=== PATIENT | female | born 1995 | race American Indian/Alaskan Native ===

== ENCOUNTER 2018-02-26 21:47 | Emergency (ER) | payer SELFPAY ==
[2018-02-26 22:37] VITALS: BP 137/78
[2018-02-26] MEDS ORDERED: TYLENOL ONE (22:43)
[2018-02-26 23:07] LABS: Basophils % (Auto) 0.5 % (0.0-1.8); Hematocrit 40.2 % (30.3-42.9); Hemoglobin 13.7 gm/dl (10.1-14.3); Lymphocytes # (Auto) 2.2 K/mm3 (1.2-5.4); Lymphocytes % (Auto) 23.4 % (13.4-35.0); Mean Corpuscular HGB Conc 34 % (30-34); Mean Corpuscular Hemoglobin 29 pg (28-32); Mean Corpuscular Volume 84 fl (79-97); Monocytes # (Auto) 0.9 K/mm3 (0.0-0.8); Monocytes % (Auto) 9.6 % (0.0-7.3); Platelet Count 305 K/mm3 (140-440); Red Cell Distribution Width 14.3 % (13.2-15.2)
[2018-02-26 23:27] LABS: Alanine Aminotransferase 66 units/L (7-56); Albumin 4.5 g/dL (3.9-5); BUN/Creatinine Ratio 14; Blood Urea Nitrogen 7 mg/dL (7-17); Calcium 9.1 mg/dL (8.4-10.2); Hemolysis Index 3; Lipase 26 units/L (13-60)
[2018-02-26 23:38] LABS: INR 0.93 (0.87-1.13)
[2018-02-26 23:39] LABS: Partial Thromboplastin Time 33.1 Sec. (24.2-36.6)
[2018-02-27 01:17] LABS: Bilirubin,Urine NEG (Negative); Blood,Urine MOD (Negative); Color,Urine Yellow (Yellow); Mucus,Urine 2+ /HPF; Protein,Urine <15 mg/dL mg/dL (Negative)
== END 2018-02-26 23:50 | disposition left against medical advice (07) ==
LOC: ED 21:47
DX: R10.9 Unspecified abdominal pain (principal); R11.2 Nausea with vomiting, unspecified; Z53.21 Procedure and treatment not carried out due to patient leaving prior to being seen by health care provider
CPT/HCPCS: 36415; 80053; 81001; 83690; 84703; 85025; 85610; 85730; 86850; 86900; 86901; 93005; 93010

== ENCOUNTER 2018-08-04 22:54 | Emergency (ER) | payer MEDICAID ==
[2018-08-04] MEDS ORDERED: NACL 0.9% 1000 ML 1,000 ML IV ONE (23:27)
[2018-08-04] MEDS ORDERED: MORPHINE IV ONE (23:27)
[2018-08-04] MEDS ORDERED: ZOFRAN IV ONE (23:27)
--- NOTE | 2018-08-04 23:30 | Emergency Department Report ---
ED Abdominal Pain HPI - General Chief Complaint: Abdominal Pain Stated Complaint: ABD PAIN Time Seen by Provider: 08/04/18 23:03 Source: patient, EMS Mode of arrival: Stretcher Limitations: No Limitations - History of Present Illness Initial Comments: Kristine is a 23-year-old female with history of Crohn's disease, bipolar disorder , kidney stone and cold sores who presents with right lower quadrant abdominal pain which began gradually around 4:30 PM. The patient has subjective fever. Has a burning type pain. Gradual onset. no radiation of the pain. She ate fried chicken and fried fish this afternoon. She normally lives in [facility]. She is here in [facility] visiting her sister. [facility] is followed [facility] a free clinic. She takes sulfasalazine. She normally has a Crohn's flare every few months or so. She does not have access to a supervisor mending. She is attempting to establish care. MD Complaint: abdominal pain -: Gradual Location: RLQ Radiation: R flank Severity: severe Quality: burning Worsens With: movement Associated Symptoms: nausea, vomiting - Related Data Previous Rx's Medication Instructions Recorded Last Taken Type oxyCODONE /ACETAMINOPHEN [Percocet 1 tab PO Q6HR PRN #10 tablet 08/05/18 Unknown Rx 5/325] predniSONE [Deltasone] 3 tab PO QDAY 3 Days #9 tab 08/05/18 Unknown Rx Allergies Allergy/AdvReac Type Severity Reaction Status Date / Time ciprofloxacin [From Cipro] Allergy Hives Verified 02/26/18 22:32 Penicillins Allergy Hives Verified 02/26/18 22:32 ED Review of Systems ROS: Stated complaint: ABD PAIN Other details as noted in HPI Comment: All other systems reviewed and negative Constitutional: fever, malaise Respiratory: denies: cough Cardiovascular: denies: chest pain ED Past Medical Hx - Past Medical History Previous Medical History?: Yes Hx Kidney Stones: Yes Hx Psychiatric Treatment: Yes (bipolar and depression) Additional medical history: Chrons Dz, - Surgical History Past Surgical History?: Yes Hx Cholecystectomy: Yes Additional Surgical History: tonsilectomy, ureteral stent - Social History Smoking Status: Never Smoker Substance Use Type: None - Medications Home Medications: Home Medications Medication Instructions Recorded Confirmed Last Taken Type oxyCODONE /ACETAMINOPHEN [Percocet 1 tab PO Q6HR PRN #10 tablet 08/05/18 Unknown Rx 5/325] predniSONE [Deltasone] 3 tab PO QDAY 3 Days #9 tab 08/05/18 Unknown Rx ED Physical Exam - General Limitations: No Limitations General appearance: alert, in no apparent distress - Head Head exam: Present: atraumatic, normocephalic - Eye Eye exam: Present: normal appearance - ENT ENT exam: Present: mucous membranes moist - Neck Neck exam: Present: normal inspection. Absent: tenderness, meningismus - Respiratory Respiratory exam: Present: normal lung sounds bilaterally. Absent: respiratory distress, wheezes, rales, rhonchi - Cardiovascular Cardiovascular Exam: Present: regular rate, normal rhythm, normal heart sounds. Absent: systolic murmur, diastolic murmur, rubs, gallop - GI/Abdominal GI/Abdominal exam: Present: soft, normal bowel sounds. Absent: distended, tenderness, guarding, rebound - Extremities Exam Extremities exam: Present: normal inspection - Back Exam Back exam: Present: normal inspection - Neurological Exam Neurological exam: Present: alert, oriented X3 - Psychiatric Psychiatric exam: Present: normal affect, normal mood - Skin Skin exam: Present: warm, dry, intact, normal color. Absent: rash ED Course Vital Signs 08/04/18 08/04/18 08/04/18 23:00 23:02 23:57 Temperature 98.7 F Pulse Rate 97 H 86 Respiratory 15 19 16 Rate Blood Pressure 138/82 144/94 Blood Pressure [Right] O2 Sat by Pulse 95 98 100 Oximetry 08/04/18 08/05/18 08/05/18 23:58 00:28 01:09 Temperature Pulse Rate 75 Respiratory 16 16 16 Rate Blood Pressure Blood Pressure 124/47 [Right] O2 Sat by Pulse 97 Oximetry ED Medical Decision Making - Lab Data Result diagrams: 08/04/18 23:26 08/04/18 23:26 Laboratory Results - last 24 hr 08/04/18 08/04/18 08/04/18 23:26 23:26 23:26 WBC 8.6 RBC 4.79 Hgb 14.4 H Hct 41.1 MCV 86 MCH 30 MCHC 35 H RDW 13.8 Plt Count 276 Lymph % (Auto) 23.6 Robertson % (Auto) 10.5 H Eos % (Auto) 0.2 Baso % (Auto) 0.4 Lymph # 2.0 Robertson # 0.9 H Eos # 0.0 Baso # 0.0 Seg Neutrophils % 65.3 Seg Neutrophils # 5.6 Sodium 137 Potassium 3.6 Chloride 98.9 Carbon Dioxide 21 L Anion Gap 21 BUN 7 Creatinine 0.6 L Estimated GFR > 60 BUN/Creatinine Ratio 12 Glucose 91 Calcium 9.3 Total Bilirubin 0.40 AST 27 ALT 34 Alkaline Phosphatase 92 Total Protein 6.9 Albumin 4.2 Albumin/Globulin Ratio 1.6 Lipase HCG, Qual Negative Urine Color Urine Turbidity Urine pH Ur Specific Suches Urine Protein Urine Glucose (UA) Urine Ketones Urine Blood Urine Nitrite Urine Bilirubin Urine Urobilinogen Ur Leukocyte Esterase Urine WBC (Auto) Urine RBC (Auto) U Epithel Cells (Auto) Urine Bacteria (Auto) 08/04/18 08/04/18 23:26 23:57 WBC RBC Hgb Hct MCV MCH MCHC RDW Plt Count Lymph % (Auto) Robertson % (Auto) Eos % (Auto) Baso % (Auto) Lymph # Robertson # Eos # Baso # Seg Neutrophils % Seg Neutrophils # Sodium Potassium Chloride Carbon Dioxide Anion Gap BUN Creatinine Estimated GFR BUN/Creatinine Ratio Glucose Calcium Total Bilirubin AST ALT Alkaline Phosphatase Total Protein Albumin Albumin/Globulin Ratio Lipase 28 HCG, Qual Urine Color Yellow Urine Turbidity Slightly-cloudy Urine pH 6.0 Ur Specific S[place]hes 1.009 Urine Protein <15 mg/dl Urine Glucose (UA) Neg Urine Ketones Neg Urine Blood Sm Urine Nitrite Neg Urine Bilirubin Neg Urine Urobilinogen < 2.0 Ur Leukocyte Esterase Neg Urine WBC (Auto) 1.0 Urine RBC (Auto) 3.0 U Epithel Cells (Auto) 12.0 Urine Bacteria (Auto) 1+ - Medical Decision Making Kristine presents with mild Crohn's exacerbation without peritonitis obstruction or KAILASH. rx: prednisone and percocet given diet instructions Critical care attestation.: If time is entered above; I have spent that time in minutes in the direct care of this critically ill patient, excluding procedure time. ED Disposition Clinical Impression: Crohns disease, Exacerbation of Crohn's disease, RLQ abdominal pain Disposition: TO HOME OR SELFCARE Is pt being admited?: No Does the pt Need Aspirin: No Condition: Stable Instructions: Crohn Disease (ED) Prescriptions: oxyCODONE /ACETAMINOPHEN [Percocet 5/325] 1 tab PO Q6HR PRN #10 tablet PRN Reason: Pain predniSONE [Deltasone] 3 tab PO QDAY 3 Days #9 tab Referrals: [facility] [Outside] - 3-5 Days Time of Disposition: 01:24
[2018-08-05 00:01] LABS: Basophils % (Auto) 0.4 % (0.0-1.8); Eosinophils % (Auto) 0.2 % (0.0-4.3); Hematocrit 41.1 % (30.3-42.9); Hemoglobin 14.4 gm/dl (10.1-14.3); Lymphocytes % (Auto) 23.6 % (13.4-35.0); Mean Corpuscular HGB Conc 35 % (30-34); Mean Corpuscular Hemoglobin 30 pg (28-32); Mean Corpuscular Volume 86 fl (79-97); Monocytes # (Auto) 0.9 K/mm3 (0.0-0.8); Monocytes % (Auto) 10.5 % (0.0-7.3); Platelet Count 276 K/mm3 (140-440); Red Blood Count 4.79 M/mm3 (3.65-5.03); Red Cell Distribution Width 13.8 % (13.2-15.2)
[2018-08-05 00:21] LABS: Alanine Aminotransferase 34 units/L (7-56); Albumin 4.2 g/dL (3.9-5); BUN/Creatinine Ratio 12; Blood Urea Nitrogen 7 mg/dL (7-17); Calcium 9.3 mg/dL (8.4-10.2); Hemolysis Index 6
[2018-08-05 00:41] LABS: Bacteria,Urine 1+ /HPF (Negative); Bilirubin,Urine NEG (Negative); Blood,Urine SM (Negative); Color,Urine Yellow (Yellow); Protein,Urine <15 mg/dL mg/dL (Negative); Urobilinogen,Urine < 2.0 mg/dL (<2.0)
[2018-08-05 01:10] VITALS: BP 124/47
[2018-08-05] MEDS ORDERED: PERCOCET 5/325 PO ONE (01:25)
[2018-08-05] MEDS ORDERED: DELTASONE PO ONE (01:25)
== END 2018-08-05 01:38 | disposition home or self-care (01) ==
LOC: ED 22:54
DX: K50.90 Crohn's disease, unspecified, without complications (principal); R10.31 Right lower quadrant pain; Z90.49 Acquired absence of other specified parts of digestive tract; Z88.1 Allergy status to other antibiotic agents; Z88.0 Allergy status to penicillin
CPT/HCPCS: 36415; 80053; 81001; 83690; 84703; 85025; 96361; 96374; 96375; 99284; J2270; J2405; J7030; J7512

== ENCOUNTER 2019-02-03 22:41 | Emergency (ER) | payer MEDICAID ==
[2019-02-03] MEDS ORDERED: PEPCID PO ONE (23:16)
--- NOTE | 2019-02-03 23:16 | Emergency Department Report ---
Chief Complaint: Skin Rash Stated Complaint: POSSIBLE ALLERGIC REACTION DEBBY Time Seen by Provider: 02/03/19 23:13 - HPI History of Present Illness: pt c/o rash to face and chest that started at 5 PM itching states she took a benadryl 5:00 PM Pt denies any new foods, medicines, soaps, detergents, insect bite no SOB, no wheezing, no facial swelling, no angioedema VSS - Exam Vital Signs: Vital Signs 02/03/19 22:49 Temperature 98.2 F Pulse Rate 88 Respiratory 18 Rate Blood Pressure 124/63 O2 Sat by Pulse 98 Oximetry MSE screening note: Focused history and physical exam performed. Due to findings the following was ordered: benadryl, pepcid, dexamethasone ED Disposition for MSE Condition: Stable
[2019-02-03] MEDS ORDERED: BENADRYL PO ONE (23:17)
[2019-02-03] MEDS ORDERED: DECADRON PO ONE (23:17)
--- NOTE | 2019-02-04 02:22 | Emergency Department Report ---
ED Rash HPI - HPI Chief Complaint: Skin Rash Stated Complaint: POSSIBLE ALLERGIC REACTION DEBBY Time Seen by Provider: 02/03/19 23:13 Duration: 1 Day Location: Head (face), Neck, Chest, Upper Extremities Suspected Cause: Other (baby wipes) Rash Symptoms: Yes Itching, No Facial Swelling, No Tongue/Oral Swelling, No Breathing Difficulties, No Choking Sensation, No Wheezing/Dyspnea, No Peeling, No Blistering, No Fever, No Lightheaded, No Malaise, No Myalgias Severity: moderate Other History: This is a 23-year-old female who presents with a rash to face, anterior trunk, bilateral upper extremities for 1 day. Patient states she had Crohn's flare 2 days ago and was given steroids which she usually take without issues. She also reports using a generic baby wipe to face and chest. Patient states her chest is itching worse in the areas she used baby wipe. She think she had an allergic reaction to the wipe. Patient states she was given methylprednisolone while in the hospital and fine. She is currently not taking any medication. She reports taking a benadryl at 1700 today. She denies difficulty swallowing, palpitations, chest pain, swelling of tongue. ED Review of Systems ROS: Stated complaint: POSSIBLE ALLERGIC REACTION DEBBY Other details as noted in HPI Constitutional: denies: chills, fever Respiratory: denies: cough, shortness of breath, wheezing Cardiovascular: denies: chest pain, palpitations Gastrointestinal: denies: abdominal pain, nausea, diarrhea Skin: rash. denies: lesions Neurological: denies: headache, weakness, paresthesias Psychiatric: denies: anxiety, depression ED Past Medical Hx - Past Medical History Previous Medical History?: Yes Hx Kidney Stones: Yes Hx Psychiatric Treatment: Yes (bipolar and depression) Additional medical history: Crohns Dz, - Surgical History Past Surgical History?: Yes Hx Cholecystectomy: Yes Additional Surgical History: tonsilectomy, ureteral stent - Social History Smoking Status: Current Every Day Smoker Substance Use Type: None - Medications Home Medications: Home Medications Medication Instructions Recorded Confirmed Last Taken Type oxyCODONE /ACETAMINOPHEN [Percocet 1 tab PO Q6HR PRN #10 tablet 08/05/18 Unknown Rx 5/325] Cetirizine HCl [Zyrtec] 10 mg PO DAILY #30 tablet 02/04/19 Unknown Rx Ranitidine HCl [Zantac 150 MG TAB] 150 mg PO DAILY #30 tablet 02/04/19 Unknown Rx hydrOXYzine PAMOATE [Vistaril] 25 mg PO Q6HR PRN #16 capsule 02/04/19 Unknown Rx predniSONE [Deltasone] 3 tab PO QDAY 3 Days #9 tab 02/04/19 Unknown Rx Rash Exam - Exam General: Vital signs noted. No distress. Alert and acting appropriately. HEENT: No Periorbital Edema, No Conjuctival Injection, No Chemosis, No Perioral Edema, No Tongue Edema, No Uvular Edema, No Compromised Airway, No Drooling Lungs: Yes Good Air Exchange (Normal Breath Sounds), No Wheezes, No Ronchi, No Stridor, No Cough, No Labored Respirations, No Retractions, No Use of Accessory Muscles, No Other Abnormal Lung Sounds Heart: Yes Regular, No Murmur Skin: Yes Maculopapular Rash (face, anterior torso, and BUE, blanchable), No Urticarial Rash, No Morbilliform rash, No Bulla(e), No Excoriations, No Weeping, No Tenderness, No Erythema, No Edema, No Encrustations, No Other ED Course Vital Signs 02/03/19 02/03/19 22:49 23:15 Temperature 98.2 F 98.2 F Pulse Rate 88 86 Respiratory 18 18 Rate Blood Pressure 124/63 130/72 O2 Sat by Pulse 98 98 Oximetry ED Medical Decision Making - Medical Decision Making This is a 23 y.o. female presents to the emergency room with a rash to face, anterior trunk, and BUE for 1 day. Patient examined by this provider. No distress noted. Vitals stable. Given Pepcid, dexamethasone, and Benadryl. Patient reports itching has improved. Physical assessment susceptible of allergic contact dermatitis. Start ranitidine, prednisone, cetirizine, and Vistaril. Discussed plan with patient mother and agreed to plan. Critical care attestation.: If time is entered above; I have spent that time in minutes in the direct care of this critically ill patient, excluding procedure time. ED Disposition Clinical Impression: Allergic dermatitis, Pruritic rash Disposition: TO HOME OR SELFCARE Is pt being admited?: No Does the pt Need Aspirin: No Condition: Stable Instructions: Contact Dermatitis (ED) Additional Instructions: Complete full course of steroids since prescribed. Take Benadryl or Vistaril for itching. Follow up with a primary care provider in 2-3 days. Return to the emergency room if difficulty swallowing, palpitations, chest pain, difficulty breathing. Prescriptions: predniSONE [Deltasone] 3 tab PO QDAY 3 Days #9 tab hydrOXYzine PAMOATE [Vistaril] 25 mg PO Q6HR PRN #16 capsule PRN Reason: Itching Ranitidine HCl [Zantac 150 MG TAB] 150 mg PO DAILY #30 tablet Cetirizine HCl [Zyrtec] 10 mg PO DAILY #30 tablet Referrals: [facility] [Outside] - 3-5 Days [facility] [Outside] - 3-5 Days [facility] [Outside] - 3-5 Days Time of Disposition: 02:37
[2019-02-04 02:44] VITALS: BP 128/71
== END 2019-02-04 02:44 | disposition home or self-care (01) ==
LOC: ED 22:41
DX: L23.9 Allergic contact dermatitis, unspecified cause (principal); F31.9 Bipolar disorder, unspecified; F32.9 Major depressive disorder, single episode, unspecified; F17.200 Nicotine dependence, unspecified, uncomplicated
CPT/HCPCS: 99282; J8540